=== PATIENT | female | born 1995 ===

== ENCOUNTER 2017-10-30 11:48 | Inpatient (IN) ==
[2017-11-02] MEDS ORDERED: MAG-AL + SIM ORAL LIQUID 30ml PO PRN ×2 (16:17→23:56)
[2017-11-02] MEDS ORDERED: ACETAMINOPHEN 500 MG TABLET PO PRN ×2 (16:17→23:56)
[2017-11-02] MEDS ORDERED: METHYLERGONOVINE 0.2 MG/ML INJECTION IM PRN (16:17)
[2017-11-02] MEDS ORDERED: CALCIUM CARBONATE Chewable 500mg TABLET PO PRN ×2 (16:17→23:56)
[2017-11-02] MEDS ORDERED: CARBOPROST 250 MCG/ML INJECTION IM PRN (16:17)
[2017-11-02] MEDS ORDERED: LIDOCAINE 1% (10mg/ml) 2mL INJ PF SDV ID PRN (16:17)
[2017-11-02 17:02] VITALS: BMI 23.5
--- NOTE | 2017-11-02 18:10 | Anesthesia Preoperative Report ---
Anesthesia Epidural/Spinal Rec - Date and Time Date: 11/02/17 Procedure: Labor Epidural Plan: Epidural - Vital Signs Vital Signs: Temperature 97.8 F 11/02/17 17:04 Pulse Rate 56 L 11/02/17 17:04 Respiratory Rate 14 11/02/17 17:04 Blood Pressure 119/70 11/02/17 17:04 /Para: P:0 - Medictaions & Allergies Inpatient Medications: Current Medications Acetaminophen (Tylenol) 500 - 1,000 mg PO Q4H PRN PRN Reason: Pain Al Hydroxide/Mg Hydroxide (Maalox Plus) 30 ml PO Q3H PRN PRN Reason: Indigestion Calcium Carbonate (Tums) 500 - 1,000 mg PO Q2H PRN PRN Reason: Indigestion Carboprost Tromethamine (Hemabate) 250 mcg IM O PRN PRN Reason: .Downtime Lactated Ringer's (Lactated Ringers) 1,000 mls @ 999 mls/hr IV .Q1H1M PRN Lidocaine HCl (Xylocaine-Mpf 1% Vial) 0.2 mg ID O PRN PRN Reason: IV Start Methylergonovine Maleate (Methergine) 0.2 mg IM O PRN Misoprostol (Cytotec) 800 mcg IL ONCE PRN Allergies/Adverse Reactions: Allergies Allergy/AdvReac Type Severity Reaction Status Date / Time No Known Allergies Allergy Verified 11/02/17 17:18 - Home Medications Home Medications: Home Medications Medication Instructions Recorded Confirmed Type Vitamins 1 tab PO 10/05/17 History - Medical History Respiratory: Reports: Asthma (exercise induced; very rarely uses inhaler) Cardiovascular: Reports: Heart Murmur (at ; since resolved) Gastrointestional: Reports: Ulcer (no meds) DENIES: Gastroesophageal Reflux Disease Other History: Reports: Now - Surgical History HEENT Surgeries: Reports: Ear Surgery (tubes as a baby) Anesthesia Reactions: None Hx Family Anesthesia Reaction: No History of Motion Sickness: No - Social History Smoking Status: Never smoker Second Hand Exposure: No - Pertinent Findings Lab Data: CBC and BMP 11/02/17 16:26 - Physical Exam Respiratory Exam: lungs clear, bilateral breath sounds equal Cardiovascular Exam: regular rate and rhythm - Airway Assessment Mallampati Score: II TMD: 3 Fingerbreadths Neck Extension: good Overall Assessment: may be difficult intubation - ASA ASA Score: 2 - Discussion Discussion: Discussed risks/options/alternatives of anesthesia and questions answered. Patient consents. Nursing pain assessment noted. Anesthesia Discussion: spouse (significant other) Attestation Statement: Prior to the delivery of any anesthetic medication, I examined the patient, developed the plan, obtained the patient's consent and discussed the risk and benefits of the procedure with the patient/guardian.
[2017-11-02] MEDS ORDERED: AMPICILLIN 2 GM in NS 100 ML IV ONE (18:40)
[2017-11-02] MEDS: LR 1,000 ML IV PRN ×2 (18:47→20:00)
[2017-11-02] MEDS ORDERED: SUFentanil 50 MCG, ROPIVACAINE 0.2% 2MG/ML INJ 40 MG in NS 100 ML IVP ONE (20:00)
[2017-11-02] MEDS ORDERED: D5LR 1,000 ML IV SCH (21:15)
[2017-11-02] MEDS ORDERED: AMPICILLIN 1 GM in NS 100 ML IV SCH (22:45)
[2017-11-02] MEDS ORDERED: HYDROCODONE/APAP 5mg/325mg TABLET PO PRN (23:56)
[2017-11-02] MEDS ORDERED: BENZOCAINE 20% SPRAY 0.5 ML MM ONE (23:56)
[2017-11-02] MEDS ORDERED: HYDROCORTISONE 2.5% CREAM 30gm RECTALLY PRN (23:56)
[2017-11-02] MEDS ORDERED: OXYTOCIN DRIP 30 UNIT/500 ML ML IV SCH (23:56)
[2017-11-02] MEDS ORDERED: DiphenhydrAMINE 25 MG CAPSULE PO PRN (23:56)
[2017-11-03] MEDS: IBUPROFEN 800 MG TABLET PO PRN ×2 (08:08→16:20)
--- NOTE | 2017-11-03 08:41 | Labor and Delivery Note ---
DATE OF DELIVERY: 11/02/2017 DIAGNOSES 1. 21-year-old white female, G1, P0, at 40.2 weeks gestational age. 2. Spontaneous rupture of membranes. 3. Spontaneous labor. 4. Epidural anesthesia. 5. GBS prophylaxis. 6. Spontaneous vaginal delivery. 7. Male infant, 9/9 Apgars, 3435 g (Gonzalezjerry Rich). BRIEF DESCRIPTION This is a patient of Dr. Oseguera who was scheduled to come in for cervical ripening tonight. She came in as scheduled, but her water broke spontaneously and she went into spontaneous labor. So we allowed labor to progress on its own and eventually she made it to complete dilation. She had an epidural in the meantime. When she was complete, she pushed for about 10 minutes before spontaneous vaginal delivery. Infant was bulb suctioned after delivery of the head and again after delivery of the body. Cord was doubly clamped and cut after draining for 2-1/2 minutes and the infant's father cut the cord. The infant was initially placed on mother's abdomen. Perineum was intact. Placenta delivered intact. EBL was 250. GBS was positive. Maternal blood type is positive. Rubella is immune. At the time of dictation mother and infant are doing well. MTDD
[2017-11-03] MEDS: DOCUSATE CALCIUM 240 MG CAPSULE PO SCH (09:27)
--- NOTE | 2017-11-03 13:02 | Progress Note ---
OB PP Progress Note Free Text - Date Date: 11/03/17 - Progress Note Progress Note: vss af no c/o cont current care path q&a-krb
--- NOTE | 2017-11-03 16:47 | Anesthesia Postoperative Note ---
- Date and Time Date: 11/03/17 Time: 16:38 - Status Patient Participated in Evaluation: Patient Participated in Person Vital Signs: Temperature 98.1 F 11/03/17 16:15 Pulse Rate 74 11/03/17 16:15 Respiratory Rate 12 11/03/17 16:15 Blood Pressure 125/72 11/03/17 16:15 Respiratory Function: Airway Patent, Regular Respirations Cardiovascular Function: Regular Pulse Mental Status: Alert and Oriented Pain Intensity: 0 Hydration: Taking PO Fluids Complications During Recover: None Apparent Post Anesthesia Care Notes: ambulating without problems - Follow-Up Instructions Instructions: Per Surgeon
--- NOTE | 2017-11-04 08:43 | Progress Note ---
OB PP Progress Note Free Text - Date Date: 11/04/17 - Progress Note Progress Note: vss af no c/o peds plans dc tonight instructions given q&a
[2017-11-04] MEDS: IBUPROFEN 800 MG TABLET PO PRN ×2 (10:40→18:58)
[2017-11-04] MEDS: DOCUSATE CALCIUM 240 MG CAPSULE PO SCH (13:32)
[2017-11-04 16:26] VITALS: BP 118/71; PULSE 65; RESP 18; TEMP 97.9
== END 2017-11-04 19:05 | disposition home or self-care (01) | DRG 775 ==
LOC: MC 11-02 15:55
PROVIDERS: ADMIT Obstetrics & Gynecology; ATTEND Obstetrics & Gynecology